=== PATIENT | female | born 1955 | race Caucasian/White ===

== ENCOUNTER → 2016-08-12 | Outpatient (CLI) | payer OTHER ==
[~2016-08-12] MED LIST: ADV250INH INH; ALBU17IN INH; LEVA250T PO; NICO21PAT TD; OXYC-517 PO; SENN1TAB2 PO; TYLE500T78 PO
[2016-08-12 13:59] LABS: MEAN CORPUSCULAR HEMOGLOBIN 33.1 pg (27.0-33.0); MEAN CORPUSCULAR HGB CONC 34.4 g/dl (32.0-36.5); MEAN CORPUSCULAR VOLUME 96.1 fl (80.0-96.0); RED CELL DISTRIBUTION WIDTH 18.9 % (11.5-14.5); WHITE BLOOD COUNT 13.4 K/mm3 (4.0-10.0)
[2016-08-12 14:22] LABS: ANION GAP 11 MEQ/L (8-16); BLOOD UREA NITROGEN 7 MG/DL (7-18); CALCIUM LEVEL 8.8 MG/DL (8.8-10.2); CARBON DIOXIDE LEVEL 26 MEQ/L (21-32); CHLORIDE LEVEL 105 MEQ/L (98-107); CREATININE FOR GFR 0.83 MG/DL (0.55-1.02); GLOMERULAR FILTRATION RATE > 60.0 (>45); GLUCOSE, FASTING 111 MG/DL (80-110); POTASSIUM SERUM 3.7 MEQ/L (3.5-5.1); SODIUM LEVEL 142 MEQ/L (136-145)
== END | disposition home or self-care (01) ==
LOC: M LAB 13:04
PROVIDERS: ATTEND Family Medicine
DX: B09 Unspecified viral infection characterized by skin and mucous membrane lesions (principal)

== ENCOUNTER → 2016-08-21 | Outpatient (CLI) | payer OTHER ==
[~2016-08-21] MED LIST changes: +ISOVUE-370 76% 100ML VIAL (Q9967) As Ordered ONE; -OXYC-517 PO; +OXYCO5TA PO
--- NOTE | 2016-08-21 12:29 | REP ---
Clinical: History of bladder cancer with cystectomy. Technique: Axial precontrast, contrast enhanced, and delayed images of the abdomen and pelvis using 100 ml Isovue 370 intravenous contrast material with coronal and sagittal re-formations. Comparison: 12/19/2015. Findings: Lung bases are stable and again demonstrate a 3.5 mm noncalcified nodule in the right lung base without further nodular lesions appreciated and no evidence for pleural effusion. Visualized portions of the heart and pericardium are normal. Liver, spleen, pancreas, gallbladder, bilateral adrenal glands and kidneys are normal. The patient is status post cystectomy with a urostomy at the right anterior abdominal wall with delayed imaging demonstrating normal renal collecting systems and bilateral ureters to the site of urostomy without evidence for hydronephrosis. There is evidence for bowel procedure with sutures noted at the small bowel in the right lower quadrant just below the level of the urostomy without evidence for bowel obstruction or acute inflammatory process. Sigmoid diverticulosis noted without acute diverticulitis. Pelvis demonstrates changes related to prior cystectomy and hysterectomy. No pelvic fluid or ascites. No significant intraperitoneal or retroperitoneal adenopathy is appreciated. No free air. Mild atherosclerotic changes of the aorta and branch vessels noted without aneurysm or dissection. Skeletal structures demonstrate degenerative changes without focal osseous abnormality. Impression: 1. The patient is status post cystectomy with a urostomy and essentially normal appearance to the bilateral kidneys and ureters without hydronephrosis. 2. No evidence for acute intra-abdominal or pelvic pathology and no evidence for obvious metastatic disease or recurrent lesion. 3. Stable 3.5 mm noncalcified nodule in the right lung base without further pulmonary basilar abnormalities. 4. Sigmoid diverticulosis. Signed by London De La O MD 08/21/2016 12:20 P
== END ==
LOC: M RAD 11:15
PROVIDERS: ATTEND Urology
DX: C67.9 Malignant neoplasm of bladder, unspecified (principal)

== ENCOUNTER → 2016-08-28 | Outpatient (REF) | payer OTHER ==
[~2016-08-28] MED LIST changes: -ISOVUE-370 76% 100ML VIAL (Q9967) As Ordered ONE; +OXYC-517 PO; -OXYCO5TA PO
== END ==
LOC: M SMT 11:05
PROVIDERS: ATTEND Urology
DX: C67.9 Malignant neoplasm of bladder, unspecified (principal)

== ENCOUNTER → 2016-09-14 | Outpatient (REF) | payer OTHER | LOC: M SMT 13:28 | PROVIDERS: ATTEND Urology | DX: C67.9 Malignant neoplasm of bladder, unspecified (principal) ==

== ENCOUNTER → 2016-09-18 | Outpatient (CLI) | payer OTHER ==
[~2016-09-18] MED LIST changes: +ISOVUE-370 76% 100ML VIAL (Q9967) As Ordered ONE
--- NOTE | 2016-09-18 15:51 | REP ---
[facility] CT of the chest, CT pulmonary angiography: Comparison is the chest CT dated 06/17/2016. There are no emboli in the pulmonary trunk or in the central right or left pulmonary arteries. There are no emboli in the pulmonary artery lobe or segment branches. There are no acute infiltrates or effusions. There is focal thickening at the peripheral aspect of the right major fissure along the superior segment of the right lower lobe, unchanged from the comparison study. There is a 11 mm lung nodule in the medial segment right lower lobe on image 47, not present on the prior study. There is a 8 mm lung nodule in the superior segment right lower lobe on page 46, unchanged from the prior study. There is a 6 mm lung nodule in the right lower lobe on image 71. This measured 4 mm on the comparison study. There is bilateral apical pleuroparenchymal scarring, unchanged. There are numerous bulla replace in the lung parenchyma bilaterally, unchanged, compatible with bullous emphysema. There is no mediastinal, hilar or axillary lymph node enlargement. Thoracic aorta is unremarkable. Cardiac size normal. Within the upper abdomen there appears to be hepato steatosis. The visualized upper abdominal contents are otherwise unremarkable. Impression: There are no pulmonary emboli. There are findings compatible with bullous emphysema. There is a new 11 mm lung nodule in the medial segment right lower lobe. There are two other lung nodules that were present previously. One of these two nodules has increased in size. There is hepato steatosis. Signed by Pankaj Oliver MD 09/18/2016 03:43 P
== END ==
LOC: M RAD 14:01
PROVIDERS: ATTEND Internal Medicine Medical Oncology
DX: R06.02 Shortness of breath (principal)

== ENCOUNTER → 2016-10-09 | Outpatient (REF) | payer OTHER ==
[~2016-10-09] MED LIST changes: -ISOVUE-370 76% 100ML VIAL (Q9967) As Ordered ONE
[2016-10-09 12:57] LABS: INR 0.94
[2016-10-09 13:22] LABS: MEAN CORPUSCULAR HEMOGLOBIN 36.2 pg (27.0-33.0); MEAN CORPUSCULAR HGB CONC 32.7 g/dl (32.0-36.5); MEAN CORPUSCULAR VOLUME 110.8 fl (80.0-96.0); PLATELET COUNT, AUTOMATED 570 k/mm3 (150-450); RED CELL DISTRIBUTION WIDTH 20.7 % (11.5-14.5); WHITE BLOOD COUNT 5.2 K/mm3 (4.0-10.0)
[2016-10-09 14:02] LABS: BANDS 1 % (< 11); BASOPHILS 2 % (0-4); CORRECTED WHITE BLOOD COUNT 4.9 K/mm3; EOSINOPHILS 2 % (0-5); NUCLEATED RED BLOOD CELL 7 % (0-0)
[2016-10-09 14:03] LABS: ANISOCYTOSIS 2+
== END ==
LOC: M LABDRWAD 12:40
PROVIDERS: ATTEND Internal Medicine Medical Oncology
DX: C67.9 Malignant neoplasm of bladder, unspecified (principal)

== ENCOUNTER → 2016-10-16 | Outpatient (CLI) | payer OTHER ==
[~2016-10-16] MED LIST changes: +LIDOCAINE 1% MDV 20ML VIAL As Ordered ONE
--- NOTE | 2016-10-16 13:32 | REP ---
LIMITED CT CHEST: Limited CT of the chest is performed without IV contrast and compared to a prior study of 09/18/2016. The patient presents for CT-guided biopsy of a right lower lobe nodule. The nodule has significantly decreased in size. The maximum diameter is 5 mm. The previous diameter was 1.1 cm. This is most consistent with an inflammatory nodule. Recommend followup CT exam in two months. Signed by Pankaj Chappell MD 10/16/2016 05:01 P
== END ==
LOC: M RADPRO 08:08
PROVIDERS: ATTEND Internal Medicine Medical Oncology
DX: R91.1 Solitary pulmonary nodule (principal); Z88.2 Allergy status to sulfonamides; Z79.899 Other long term (current) drug therapy

== ENCOUNTER → 2016-11-04 | Outpatient (CLI) | payer OTHER ==
[~2016-11-04] MED LIST changes: -LIDOCAINE 1% MDV 20ML VIAL As Ordered ONE
--- NOTE | 2016-11-04 09:46 | REP ---
Clinical: Abdominal distension. Technique: Real time neville scale and color evaluation using curved array transducer. Findings: The liver is mildly enlarged and demonstrates diffuse increase echogenicity and poor through transmission suggesting fatty infiltration without focal hepatic lesion identified. Spleen and pancreas are normal in contour, size, echogenicity without focal splenic or pancreatic lesions identified. The gallbladder is normal and without gallstones, wall thickening or pericholecystic fluid. No biliary ductal dilatation is appreciated and the common bile duct measures 5.5 mm diameter. Kidneys are normal in reniform shape with suggestions for mild to nephrosis/pelviectasis. Right kidney measures 11.5 x 6.6 x 4.7 cm with renovascular calcifications and no cystic or mass lesion. Left kidney measures 12.5 x 7.0 x 5.4 cm with renovascular calcifications and no cystic or mass lesion. Abdominal aorta is normal in appearance measuring 2.5 cm maximal diameter. No ascites. Impression: 1. Hepatomegaly and hepatosteatosis without focal hepatic lesion. 2. Mild bilateral hydronephrosis suggested. Signed by London De La O MD 11/04/2016 09:37 A
== END ==
LOC: M RAD 08:19
PROVIDERS: ATTEND Physician Assistant Medical
DX: R10.11 Right upper quadrant pain (principal)

== ENCOUNTER → 2016-11-24 | Outpatient (CLI) | payer OTHER ==
--- NOTE | 2016-11-24 16:07 | REPMRS ---
Patient History The patient states she had a clinical breast exam in 11/2016. Patient is postmenopausal, has history of bladder cancer at age 60, and is nulliparous. Family history of breast cancer in sister at age 65. Digital Woman Screen Mammo: November 24, 2016 - Exam #: [id number] Bilateral CC and MLO view(s) were taken. Technologist: Ivet Zayas Technologist Prior study comparison: December 06, 2015, digital mammo diagnostic bilateral, performed at [facility]. November 15, 2015, digital woman screen mammo performed at [facility]. June 14, 2012, digital bilateral screening mammo, performed at [facility]. FINDINGS: There are scattered fibroglandular densities. There has been no change in the appearance of the mammogram from the prior studies. There is a mild amount of scattered fibroglandular density which is fairly symmetric. There is no interval development of dominant mass, architectural distortion, or clustered microcalcification suggestive of malignancy. ASSESSMENT: BI-RADS/ACR category 1 mammogram. Negative. Recommendation Routine screening mammogram in 1 year (for women over age 40). This mammogram was interpreted with the aid of an FDA-approved computer-aided dectection system. Electronically Signed By: Ishmael Robbins MD 11/24/16 [id number]
== END ==
LOC: M WHC 13:30
PROVIDERS: ATTEND Physician Assistant Medical
DX: Z12.39 Encounter for other screening for malignant neoplasm of breast (principal)

== ENCOUNTER → 2016-12-15 | Outpatient (REF) | payer OTHER ==
[2016-12-15 16:05] LABS: CALCIUM LEVEL 9.1 MG/DL (8.8-10.2); CREATININE FOR GFR 1.01 MG/DL (0.55-1.02); GLOMERULAR FILTRATION RATE 59.1 (>45); POTASSIUM SERUM 4.8 MEQ/L (3.5-5.1)
[2016-12-15 16:12] LABS: MEAN CORPUSCULAR HEMOGLOBIN 34.9 pg (27.0-33.0); MEAN CORPUSCULAR HGB CONC 33.4 g/dl (32.0-36.5); MEAN CORPUSCULAR VOLUME 104.5 fl (80.0-96.0); RED CELL DISTRIBUTION WIDTH 13.8 % (11.5-14.5)
== END ==
LOC: M LABSMT 09:20
PROVIDERS: ATTEND Urology
DX: Z85.51 Personal history of malignant neoplasm of bladder (principal)

== ENCOUNTER → 2017-01-06 | Outpatient (CLI) | payer OTHER ==
[2017-01-06 12:40] LABS: BASO # 0.1 K/mm3 (0.0-0.2); BASO % 1.1 % (0.0-1.0); EOS # 0.1 K/mm3 (0.0-0.50); LARGE UNSTAINED CELL # 0.1 K/mm3 (0.0-0.4); LARGE UNSTAINED CELL % 1.9 % (0.0-4.0); LYMPH # 3.2 K/mm3 (1.5-4.5); LYMPH % 40.1 % (24.0-44.0); MEAN CORPUSCULAR HEMOGLOBIN 33.9 pg (27.0-33.0); MEAN CORPUSCULAR VOLUME 99.8 fl (80.0-96.0); MONO # 0.4 K/mm3 (0.0-0.8); MONO % 5.4 % (0.0-5.0); NEUTROPHILS # 3.9 K/mm3 (1.8-7.7); NEUTROPHILS % 50.6 % (36.0-66.0); PLATELET COUNT, AUTOMATED 227 k/mm3 (150-450); RED CELL DISTRIBUTION WIDTH 13.6 % (11.5-14.5); WHITE BLOOD COUNT 7.7 K/mm3 (4.0-10.0)
[2017-01-06 12:55] LABS: ALBUMIN 3.8 GM/DL (3.2-5.2); ALKALINE PHOSPHATASE 74 U/L (45-117); ALT/SGPT 54 U/L (12-78); AMYLASE 59 U/L (25-115); ANION GAP 8 MEQ/L (8-16); AST/SGOT 36 U/L (15-37); BILIRUBIN,TOTAL 0.4 MG/DL (0.2-1.0); BLOOD UREA NITROGEN 13 MG/DL (7-18); CALCIUM LEVEL 9.6 MG/DL (8.8-10.2); CARBON DIOXIDE LEVEL 28 MEQ/L (21-32); CHLORIDE LEVEL 103 MEQ/L (98-107); CHOLESTEROL LEVEL 237 MG/DL (<200); CREATININE FOR GFR 0.96 MG/DL (0.55-1.02); GLOMERULAR FILTRATION RATE > 60.0 (>45); GLUCOSE, FASTING 84 MG/DL (80-110); POTASSIUM SERUM 4.4 MEQ/L (3.5-5.1); SODIUM LEVEL 139 MEQ/L (136-145); TRIGLYCERIDES LEVEL 300 MG/DL (<150)
--- NOTE | 2017-01-06 14:24 | REP ---
CT ABDOMEN AND PELVIS WITH AND WITHOUT CONTRAST: TECHNIQUE: Axial noncontrast images through the abdomen followed by contrast-enhanced images through the abdomen and pelvis using 100 mL Isovue 370 intravenous contrast material, with coronal and sagittal reformations. Visualized lung bases show 4 mm nodule inferiorly on the right, unchanged. There is hepatomegaly with diffuse fatty infiltration of the liver. The length of the liver is approximately 20 cm. This has not significantly changed. The spleen, adrenals, pancreas, and kidneys are unchanged. There is slight bilateral hydroureteronephrosis. Urostomy is seen extending into the right lower quadrant and extends into the anterior abdominal wall. A small bowel loops is now seen in this portion of the right anterior abdominal wall at the ostomy site but there is no obstruction of small bowel. There is no abdominal aortic aneurysm. There is no adenopathy. There is no free air or free fluid. No bowel wall thickening is seen. There is sigmoid diverticulosis without acute diverticulitis. There is no evidence of a pelvic mass. IMPRESSION: Right lower quadrant urostomy extends into the right anterior abdominal wall inferiorly. There is a new nonobstructed herniated small bowel loop into the abdominal wall with this location, but there is no evidence of bowel obstruction. Otherwise, stable findings as discussed in detail above. Signed by Pankaj Chappell MD 01/07/2017 07:05 P
== END ==
LOC: M LAB 11:29
PROVIDERS: ATTEND Physician Assistant
DX: R10.84 Generalized abdominal pain (principal)

== ENCOUNTER → 2017-01-07 | Outpatient (REF) | payer OTHER | LOC: M SFHCADAM 12:05 | PROVIDERS: ATTEND Physician Assistant | DX: R10.84 Generalized abdominal pain (principal) ==

== ENCOUNTER → 2017-01-21 | Outpatient (CLI) | payer OTHER ==
--- NOTE | 2017-01-22 01:23 | REP ---
Clinical: COPD. Technique: PA and lateral. Comparison: 08/07/2016. Findings: Biapical scarring and diffuse chronic interstitial changes are appreciated and consistent with history of COPD. Findings remain stable compared to prior examinations. No acute consolidation, effusion, or pneumothorax. Mediastinum and cardiac silhouette stable. Skeletal structures intact. Impression: Stable changes as described above. Signed by London De La O MD 01/22/2017 01:15 A
== END ==
LOC: M SMT 09:44
PROVIDERS: ATTEND Internal Medicine Pulmonary Disease
DX: J44.9 Chronic obstructive pulmonary disease, unspecified (principal)

== ENCOUNTER → 2017-02-19 | Outpatient (REF) | payer OTHER ==
[~2017-02-19] MED LIST changes: +CIPR-249 PO; +LEVA1TAB PO; -LEVA250T PO; +METF10004 PO; +MIRA33504 PO; +NORCOTAB PO; +OMEP40CA2 PO; +PRED10PA PO; +PRED10TA2 PO; +SYMB16INH INH; +TRUL10IN SC; +TYLE650T35 PO
[2017-02-19 12:22] LABS: BASO # 0.1 K/mm3 (0.0-0.2); BASO % 1.1 % (0.0-1.0); EOS # 0.1 K/mm3 (0.0-0.50); EOS % 1.8 % (0.0-3.0); LARGE UNSTAINED CELL # 0.2 K/mm3 (0.0-0.4); LARGE UNSTAINED CELL % 3.3 % (0.0-4.0); LYMPH # 2.9 K/mm3 (1.5-4.5); LYMPH % 41.9 % (24.0-44.0); MEAN CORPUSCULAR HEMOGLOBIN 34.7 pg (27.0-33.0); MEAN CORPUSCULAR HGB CONC 34.8 g/dl (32.0-36.5); MEAN CORPUSCULAR VOLUME 99.9 fl (80.0-96.0); MONO # 0.4 K/mm3 (0.0-0.8); MONO % 6.4 % (0.0-5.0); NEUTROPHILS # 2.9 K/mm3 (1.8-7.7); NEUTROPHILS % 45.6 % (36.0-66.0); PLATELET COUNT, AUTOMATED 221 k/mm3 (150-450); RED CELL DISTRIBUTION WIDTH 14.8 % (11.5-14.5); WHITE BLOOD COUNT 6.4 K/mm3 (4.0-10.0)
[2017-02-19 12:32] LABS: ALBUMIN 3.7 GM/DL (3.2-5.2); ALBUMIN/GLOBULIN RATIO 0.97 (1.00-1.93); ALKALINE PHOSPHATASE 98 U/L (45-117); ALT/SGPT 80 U/L (12-78); ANION GAP 9 MEQ/L (8-16); AST/SGOT 38 U/L (15-37); BILIRUBIN,TOTAL 0.5 MG/DL (0.2-1.0); BLOOD UREA NITROGEN 19 MG/DL (7-18); CALCIUM LEVEL 9.3 MG/DL (8.8-10.2); CARBON DIOXIDE LEVEL 25 MEQ/L (21-32); CHLORIDE LEVEL 102 MEQ/L (98-107); CREATININE FOR GFR 0.97 MG/DL (0.55-1.02); GLOMERULAR FILTRATION RATE > 60.0 (>45); GLUCOSE, FASTING 195 MG/DL (80-110); POTASSIUM SERUM 4.4 MEQ/L (3.5-5.1); SODIUM LEVEL 136 MEQ/L (136-145); TOTAL PROTEIN 7.5 GM/DL (6.4-8.2)
== END ==
LOC: M LABDRWAD 12:07
PROVIDERS: ATTEND Internal Medicine Medical Oncology
DX: C67.9 Malignant neoplasm of bladder, unspecified (principal)

== ENCOUNTER 2017-03-04 23:36 | Emergency (ER) | payer OTHER ==
[~2017-03-04 23:36] MED LIST changes: -CIPR-249 PO; -METF10004 PO; -MIRA33504 PO; -NORCOTAB PO; -OMEP40CA2 PO; -PRED10PA PO; -PRED10TA2 PO; -SYMB16INH INH; -TRUL10IN SC; -TYLE650T35 PO
[2017-03-05] MEDS ORDERED: GASTROGRAFIN SOLUTION 30ML PO ONE (00:40)
[2017-03-05] MEDS ORDERED: GASTROGRAFIN SOLUTION 30ML (Q9963) PO ONE (01:10)
[2017-03-05 01:24] LABS: BASO # 0.1 K/mm3 (0.0-0.2); BASO % 0.8 % (0.0-1.0); EOS # 0.1 K/mm3 (0.0-0.50); EOS % 1.4 % (0.0-3.0); LARGE UNSTAINED CELL # 0.2 K/mm3 (0.0-0.4); LYMPH # 3.8 K/mm3 (1.5-4.5); LYMPH % 37.1 % (24.0-44.0); MEAN CORPUSCULAR HEMOGLOBIN 35.3 pg (27.0-33.0); MEAN CORPUSCULAR HGB CONC 35.1 g/dl (32.0-36.5); MEAN CORPUSCULAR VOLUME 100.7 fl (80.0-96.0); MONO # 0.5 K/mm3 (0.0-0.8); MONO % 4.9 % (0.0-5.0); NEUTROPHILS # 5.2 K/mm3 (1.8-7.7); NEUTROPHILS % 53.7 % (36.0-66.0); PLATELET COUNT, AUTOMATED 211 k/mm3 (150-450); RED CELL DISTRIBUTION WIDTH 14.8 % (11.5-14.5); WHITE BLOOD COUNT 9.7 K/mm3 (4.0-10.0)
[2017-03-05 01:35] LABS: INR 0.87
[2017-03-05 01:42] LABS: CALCIUM LEVEL 8.5 MG/DL (8.8-10.2); CREATININE FOR GFR 1.13 MG/DL (0.55-1.02); GLOMERULAR FILTRATION RATE 51.9 (>45); POTASSIUM SERUM 4.1 MEQ/L (3.5-5.1)
[2017-03-05] MEDS ORDERED: ISOVUE-370 76% 100ML VIAL (Q9967) As Ordered ONE (01:57)
--- NOTE | 2017-03-05 02:39 | REP ---
Clinical: Hernia pain. History of bladder cancer with resection and urostomy. Technique: Axial contrast enhanced images from the lung bases to the pubic symphysis using oral and 100 ml Isovue 370 intravenous contrast material with coronal and sagittal re-formations. Comparison: 01/06/2017. Findings: The patient is status post bladder resection and urostomy via the right anterior abdominopelvic wall. A peristomal hernia is identified with multiple loops of nonobstructed small bowel which has increased with comparison to prior examination. The remainder of the enteric system is without obstruction or acute inflammatory process. Colonic and sigmoid diverticula noted without acute diverticulitis. The bilateral kidneys and ureters are normal and without perinephric stranding or hydroureteronephrosis. Diffuse fatty infiltration to the liver appreciated without focal hepatic lesion. Spleen, pancreas, collapsed gallbladder, and bilateral adrenal glands are normal. Pelvis again demonstrates sigmoid diverticulosis without acute diverticulitis and evidence for prior hysterectomy and bladder resection. No pelvic fluid or ascites. No intraperitoneal or retroperitoneal adenopathy. No obvious mass lesion. No free air. Abdominal aorta and vasculature demonstrates mild atherosclerotic changes without aneurysm or dissection. Musculoskeletal structures demonstrate age-related changes without focal osseous abnormality. Lung bases demonstrate chronic interstitial changes without consolidation, effusion, nodule or mass. Impression: 1. Peristomal hernia has increased in size and now contains multiple loops of nonobstructed small bowel. Hernia measures roughly 9.5 cm maximal diameter. 2. Relatively normal appearance of the bilateral kidneys and ureters without hydronephrosis. 3. Colonic/sigmoid diverticulosis without acute diverticulitis. 4. No ascites or acute abdominopelvic pathology otherwise appreciated. Signed by London De La O MD 03/05/2017 02:30 A
[2017-03-05] MEDS ORDERED: CIPROFLOXACIN 400 MG in APPROPRIATE DILUENT 1 EA IV ONE ×2 (03:00→07:45)
[2017-03-05 05:29] LABS: BASO # 0.1 K/mm3 (0.0-0.2); BASO % 0.8 % (0.0-1.0); EOS # 0.1 K/mm3 (0.0-0.50); EOS % 1.2 % (0.0-3.0); LARGE UNSTAINED CELL # 0.2 K/mm3 (0.0-0.4); LARGE UNSTAINED CELL % 2.5 % (0.0-4.0); LYMPH # 3.9 K/mm3 (1.5-4.5); LYMPH % 42.9 % (24.0-44.0); MEAN CORPUSCULAR HEMOGLOBIN 34.6 pg (27.0-33.0); MEAN CORPUSCULAR HGB CONC 34.6 g/dl (32.0-36.5); MONO # 0.6 K/mm3 (0.0-0.8); MONO % 6.4 % (0.0-5.0); NEUTROPHILS # 4.2 K/mm3 (1.8-7.7); NEUTROPHILS % 46.2 % (36.0-66.0); PLATELET COUNT, AUTOMATED 188 k/mm3 (150-450); RED CELL DISTRIBUTION WIDTH 14.5 % (11.5-14.5)
[2017-03-05] MEDS ORDERED: MIRA33504 PO (06:08)
[2017-03-05] MEDS ORDERED: PRED10PA PO (06:08)
[2017-03-05] MEDS ORDERED: TYLE650T35 PO (06:08)
[2017-03-05] MEDS ORDERED: PRED10TA2 PO (06:08)
[2017-03-05] MEDS ORDERED: SYMB16INH INH (06:10)
[2017-03-05] MEDS ORDERED: OMEP40CA2 PO (06:10)
[2017-03-05] MEDS ORDERED: NS 1,000 ML IV ONE (07:45)
[2017-03-05] MEDS ORDERED: CIPR-249 PO (08:05)
--- NOTE | 2017-03-05 08:37 | SMCUROLCON ---
Urology Consultation General Date of Consultation 03/05/17 Reason For Consultation This patient is seen for Medical Complaint. History of Present Illness This is a 61 y/o F w/ a PMH significant for GERD, HTN, COPD, and [id number] urothelial carcinoma of the bladder s/p robotic-assisted laparoscopic radical cystectomy w/ bilateral pelvic lymph node dissection and ileal conduit urinary diversion 04/2016 and subsequent chemotherapy, who presented to the ER w/ the onset of hematuria yesterday evening. She notes that she got up last night and all of a sudden a large amount of clots and blood poured out into her ostomy bag. This happened another 2 times while in the ER. She denies abdominal or flank pain. She denies nausea. She denies fevers or chills. Past Medical History Medical History see HPI Surgical Hstory see HPI Medications Current Medications Current Medications Home Med (Med Rec Complete!) ASDIRECTED XX ; Start 03/05/17 at 06:15; Stop at 06:15; Status DC Allergies Allergies: Coded Allergies: Sulfa Antibiotics (Unverified Allergy, Unknown, 01/16/16) Review of Systems General: Reports: Normal Appetite, Denies: Fatigue, Malaise Constitutional: Denies: Fever, Chills, Sweats Skin: Denies: Rash, Lesions, Breakdown, Nail Changes Pulmonary: Reports: Dyspnea, Cough Cardiovascular: Denies Chest Pain, Denies Palpitations Gastrointestinal: Denies: Nausea, Vomiting, Abdominal Pain Genitourinary: Reports: Hematuria Musculoskeletal: Denies: Neck Pain, Back Pain Neurological: Denies: Numbness, Incoordination, Change in Speech Psych: Reports: Mood Normal Physical Examination General Exam: Alert, Cooperative, No Acute Distress ENT EXAM: Atraumatic Chest Exam: Clear to auscultation Heart Exam: Rate Normal, Regular Rhythm Abdomen Exam: Soft, Other (stoma pink with a few clots on top and thin light red urine in the bag), No: Tenderness Skin Exam: Nl turgor and temperature Neuro Exam: Normal Speech Psych Exam: Mental status NL, Mood NL Vital Signs/I&O Vital Signs Date Time Temp Pulse Resp B/P (MAP) Pulse Ox O2 Delivery O2 Flow Rate FiO2 03/05/17 07:30 84 95 03/05/17 07:23 138/90 (106) Laboratory Data 24H Labs Laboratory Tests 2 03/05/17 01:13: White Blood Count 9.7, Red Blood Count 3.84L, Hemoglobin 13.6, Hematocrit 38.7, Mean Corpuscular Volume 100.7H, Mean Corpuscular Hemoglobin 35.3H, Mean Corpuscular Hemoglobin Concent 35.1, Red Cell Distribution Width 14.8H, Platelet Count 211, Neutrophils (%) (Auto) 53.7, Lymphocytes (%) (Auto) 37.1, Monocytes (%) (Auto) 4.9, Eosinophils (%) (Auto) 1.4, Basophils (%) (Auto) 0.8, Neutrophils # (Auto) 5.2, Lymphocytes # (Auto) 3.8, Monocytes # (Auto) 0.5, Eosinophils # (Auto) 0.1, Basophils # (Auto) 0.1, Large Unclassified Cells % 2.0 , Large Unclassified Cells # 0.2, Prothrombin Time 11.9L, Prothromb Time International Ratio 0.87, Activated Partial Thromboplast Time 23.6L, Anion Gap 9 , Glomerular Filtration Rate 51.9, Blood Urea Nitrogen 23H, Creatinine 1.13H, Sodium Level 138, Potassium Level 4.1, Chloride Level 105, Carbon Dioxide Level 24, Calcium Level 8.5L 03/05/17 01:35: Urine Appearance HAZY, Urine Color REDH, Urine pH 8.0, Urine Specific Cylinder 1.012, Urine Protein 1+H, Urine Glucose (UA) 3+H, Urine Ketones NEGATIVE, Urine Urobilinogen 0.2, Urine Bilirubin NEGATIVE, Urine Leukocyte Esterase 1+H, Urine Blood 3+H, Urine Nitrite NEGATIVE, Urine WBC (Auto) TNTCH, Urine RBC (Auto) TNTCH, Urine Hyaline Casts (Auto) 0, Urine Bacteria (Auto) NEGATIVE, Urine Squamous Epithelial Cells 2, Urine Amorphous Sediment SMALLH, Urine Sperm (Auto ) 03/05/17 05:09: White Blood Count 9.0, Red Blood Count 3.80L, Hemoglobin 13.1, Hematocrit 38.0, Mean Corpuscular Volume 100.0H, Mean Corpuscular Hemoglobin 34.6H, Mean Corpuscular Hemoglobin Concent 34.6, Red Cell Distribution Width 14.5, Platelet Count 188, Neutrophils (%) (Auto) 46.2, Lymphocytes (%) (Auto) 42.9, Monocytes ( %) (Auto) 6.4H, Eosinophils (%) (Auto) 1.2, Basophils (%) (Auto) 0.8, Neutrophils # (Auto) 4.2, Lymphocytes # (Auto) 3.9, Monocytes # (Auto) 0.6, Eosinophils # (Auto) 0.1, Basophils # (Auto) 0.1, Large Unclassified Cells % 2.5 , Large Unclassified Cells # 0.2 CBC/BMP Laboratory Tests 03/05/17 01:13 Red Blood Count 3.84 L, Mean Corpuscular Volume 100.7 H, Mean Corpuscular Hemoglobin 35.3 H, Mean Corpuscular Hemoglobin Concent 35.1, Red Cell Distribution Width 14.8 H, Neutrophils (%) (Auto) 53.7, Lymphocytes (%) (Auto) 37.1, Monocytes (%) (Auto) 4.9, Eosinophils (%) (Auto) 1.4, Basophils (%) (Auto ) 0.8, Neutrophils # (Auto) 5.2, Lymphocytes # (Auto) 3.8, Monocytes # (Auto) 0.5, Eosinophils # (Auto) 0.1, Basophils # (Auto) 0.1, Calcium Level 8.5 L 03/05/17 05:09 Red Blood Count 3.80 L, Mean Corpuscular Volume 100.0 H, Mean Corpuscular Hemoglobin 34.6 H, Mean Corpuscular Hemoglobin Concent 34.6, Red Cell Distribution Width 14.5, Neutrophils (%) (Auto) 46.2, Lymphocytes (%) (Auto) 42.9, Monocytes (%) (Auto) 6.4 H, Eosinophils (%) (Auto) 1.2, Basophils (%) ( Auto) 0.8, Neutrophils # (Auto) 4.2, Lymphocytes # (Auto) 3.9, Monocytes # (Auto ) 0.6, Eosinophils # (Auto) 0.1, Basophils # (Auto) 0.1 Microbiology Microbiology 03/05/17 Urine Culture, Received Pending Assessment This is a 61 y/o F w/ [id number] urothelial carcinoma of the bladder s/p robotic- assisted laparoscopic radical cystectomy w/ bilateral pelvic lymph node dissection and ileal conduit urinary diversion 04/2016 and subsequent chemotherapy, in the ED w/ hematuria. Her labs and imaging were reviewed. On CT there are no obvious causes of hematuria. There is no hydronephrosis. The only notable abnormality is an increase in the size of her parastomal hernia w/ no evidence of bowel obstruction. Her labs show a stable Hb and the UA is notable for TNTC WBCs and RBCs. I suspect a UTI is the cause of her hematuria. Based on the appearance of the urine in the bag when I examined her, I suspect the hematuria is clearing up. Plan - recommend hydrating the patient - assuming there is no worsening of the hematuria while in the ED, she can be sent home on a 10-14 course of ciprofloxacin - she was advised to call us or go to the nearest ED if the hematuria worsens over the weekend or if the stoma stops draining - defer management of the parastomal hernia to general surgery - we will arrange for her to follow up early next week in the office LINN BLOOM MD Mar 05, 2017 08:37
--- NOTE | 2017-03-05 09:03 | ED PDOC ---
Post-Departure Follow-Up radiology report faxed to Dr. Bosch and Madison Kurtz MD Mar 05, 2017 09:03
[2017-03-05 09:22] VITALS: BP 160/72
[2017-06-01] MEDS ORDERED: TRUL10IN SC (10:47)
[2017-06-01] MEDS ORDERED: METF10004 PO (10:47)
[2017-06-13] MEDS ORDERED: NORCOTAB PO (09:24)
== END 2017-03-05 09:31 | disposition home or self-care (01) ==
LOC: EDBD 23:36 → M ED 23:36
DX: K43.5 Parastomal hernia without obstruction or gangrene (principal); N39.0 Urinary tract infection, site not specified; E78.4 Other hyperlipidemia; K21.9 Gastro-esophageal reflux disease without esophagitis; J44.9 Chronic obstructive pulmonary disease, unspecified; Z85.51 Personal history of malignant neoplasm of bladder; Z90.6 Acquired absence of other parts of urinary tract; Z87.891 Personal history of nicotine dependence
CPT/HCPCS: 74177; 80048; 81001; 85025; 85610; 85730; 87040; 87086; 96361; 96374; 99285; J0744; Q9963; Q9967

== ENCOUNTER → 2017-04-20 | Outpatient (REF) | payer OTHER ==
[~2017-04-20] MED LIST changes: +CIPR-249 PO; +METF10004 PO; +MIRA33504 PO; +NORCOTAB PO; +OMEP40CA2 PO; +PRED10PA PO; +PRED10TA2 PO; +SYMB16INH INH; +TRUL10IN SC; +TYLE650T35 PO
[2017-04-20 20:08] LABS: CALCIUM LEVEL 9.3 MG/DL (8.8-10.2); CREATININE FOR GFR 1.16 MG/DL (0.55-1.02); GLOMERULAR FILTRATION RATE 50.4 (>45); POTASSIUM SERUM 4.7 MEQ/L (3.5-5.1)
[2017-04-20 20:17] LABS: MEAN CORPUSCULAR HEMOGLOBIN 35.1 pg (27.0-33.0); MEAN CORPUSCULAR HGB CONC 32.9 g/dl (32.0-36.5); MEAN CORPUSCULAR VOLUME 106.7 fl (80.0-96.0); RED CELL DISTRIBUTION WIDTH 13.4 % (11.5-14.5); WHITE BLOOD COUNT 7.7 K/mm3 (4.0-10.0)
== END ==
LOC: M SFHCADAM 14:37
PROVIDERS: ATTEND Urology
DX: C67.9 Malignant neoplasm of bladder, unspecified (principal)

== ENCOUNTER → 2017-04-22 | Outpatient (REF) | payer OTHER ==
[2017-04-22 14:20] LABS: CALCIUM LEVEL 8.8 MG/DL (8.8-10.2); CREATININE FOR GFR 1.15 MG/DL (0.55-1.02); GLOMERULAR FILTRATION RATE 50.9 (>45); POTASSIUM SERUM 4.4 MEQ/L (3.5-5.1)
== END ==
LOC: M SFHCPLAZ 09:28
PROVIDERS: ATTEND Physician Assistant Medical
DX: R73.09 Other abnormal glucose (principal)

== ENCOUNTER → 2017-07-16 | Outpatient (REF) | payer OTHER ==
[2017-07-16 12:26] LABS: BASO # 0.1 10^3/uL (0.0-0.2); BASO % 0.7 % (0.0-1.0); EOS # 0.3 10^3/uL (0.0-0.50); EOS % 2.3 % (0.0-3.0); IMMATURE GRANULOCYTE % 0.7 % (0-0); LYMPH # 4.4 10^3/uL (1.5-4.5); LYMPH % 38.3 % (24.0-44.0); MEAN CORPUSCULAR HEMOGLOBIN 34.8 pg (27.0-33.0); MEAN CORPUSCULAR HGB CONC 33.5 g/dl (32.0-36.5); MEAN CORPUSCULAR VOLUME 103.8 fl (80.0-96.0); MONO # 0.8 10^3/uL (0.0-0.8); MONO % 6.6 % (0.0-5.0); NEUTROPHILS # 5.9 10^3/uL (1.8-7.7); NEUTROPHILS % 51.4 % (36.0-66.0); PLATELET COUNT, AUTOMATED 278 10^3/uL (150-450); RED CELL DISTRIBUTION WIDTH 13.5 % (11.5-14.5); WHITE BLOOD COUNT 11.5 10^3/uL (4.0-10.0)
[2017-07-16 12:51] LABS: ALBUMIN 3.9 GM/DL (3.2-5.2); ALBUMIN/GLOBULIN RATIO 1.11 (1.00-1.93); ALKALINE PHOSPHATASE 70 U/L (45-117); ALT/SGPT 32 U/L (12-78); ANION GAP 11 MEQ/L (8-16); AST/SGOT 11 U/L (7-37); BILIRUBIN,TOTAL 0.5 MG/DL (0.2-1.0); BLOOD UREA NITROGEN 15 MG/DL (7-18); CALCIUM LEVEL 9.2 MG/DL (8.8-10.2); CARBON DIOXIDE LEVEL 26 MEQ/L (21-32); CHLORIDE LEVEL 106 MEQ/L (98-107); CHOLESTEROL LEVEL 212 MG/DL (<200); CREATININE FOR GFR 0.79 MG/DL (0.55-1.02); GLOMERULAR FILTRATION RATE > 60.0 (>45); GLUCOSE, FASTING 103 MG/DL (80-110); POTASSIUM SERUM 4.4 MEQ/L (3.5-5.1); SODIUM LEVEL 143 MEQ/L (136-145); TOTAL PROTEIN 7.4 GM/DL (6.4-8.2); TRIGLYCERIDES LEVEL 372 MG/DL (<150)
== END ==
LOC: M SFHCADAM 09:51
PROVIDERS: ATTEND Physician Assistant Medical
DX: K21.9 Gastro-esophageal reflux disease without esophagitis (principal); E78.4 Other hyperlipidemia; E78.1 Pure hyperglyceridemia; E55.9 Vitamin D deficiency, unspecified

== ENCOUNTER → 2017-09-07 | Outpatient (CLI) | payer OTHER ==
[~2017-09-07] MED LIST changes: -ADV250INH INH; -ALBU17IN INH; -CIPR-249 PO; +ISOVUE-370 76% 100ML VIAL (Q9967) As Ordered; -LEVA1TAB PO; -METF10004 PO; -MIRA33504 PO; -NICO21PAT TD; -NORCOTAB PO; -OMEP40CA2 PO; -OXYC-517 PO; -PRED10PA PO; -PRED10TA2 PO; -SENN1TAB2 PO; -SYMB16INH INH; -TRUL10IN SC; -TYLE500T78 PO; -TYLE650T35 PO
== END ==
LOC: M RAD 12:02
DX: M54.2 Cervicalgia (principal)

== ENCOUNTER → 2017-09-09 | Outpatient (REF) | payer OTHER ==
[2017-09-09 14:54] LABS: HEMATOCRIT 43.1 % (36.0-47.0); MEAN CORPUSCULAR HEMOGLOBIN 34.3 pg (27.0-33.0); MEAN CORPUSCULAR HGB CONC 32.5 g/dl (32.0-36.5); MEAN CORPUSCULAR VOLUME 105.6 fl (80.0-96.0); PLATELET COUNT, AUTOMATED 282 10^3/uL (150-450); RED BLOOD COUNT 4.08 10^6/uL (4.00-5.40); RED CELL DISTRIBUTION WIDTH 13.4 % (11.5-14.5); WHITE BLOOD COUNT 10.5 10^3/uL (4.0-10.0)
[2017-09-09 15:47] LABS: ANION GAP 6 MEQ/L (8-16); BLOOD UREA NITROGEN 13 MG/DL (7-18); CALCIUM LEVEL 8.9 MG/DL (8.8-10.2); CARBON DIOXIDE LEVEL 28 MEQ/L (21-32); CHLORIDE LEVEL 104 MEQ/L (98-107); CREATININE FOR GFR 0.81 MG/DL (0.55-1.30); GLOMERULAR FILTRATION RATE > 60.0 (>45); GLUCOSE, FASTING 136 MG/DL (70-100); POTASSIUM SERUM 4.7 MEQ/L (3.5-5.1); SODIUM LEVEL 138 MEQ/L (136-145)
== END ==
LOC: M SFHCADAM 10:38
DX: Z85.51 Personal history of malignant neoplasm of bladder (principal)

== ENCOUNTER → 2017-09-14 | Outpatient (CLI) | payer OTHER | LOC: M RAD 07:33 | DX: R68.84 Jaw pain (principal) | CPT/HCPCS: 70486 ==

== ENCOUNTER → 2017-09-21 | Outpatient (REF) | payer OTHER ==
[2017-09-24 00:06] LABS: HERPES ZOSTER, VARICELLA IgM <0.91 index (0.00-0.90)
[2017-09-24 00:06] LABS: HERPES ZOSTER, VARICELLA IgG 672 index (Immune >165)
== END ==
LOC: M SFHCADAM 07:35
DX: M54.2 Cervicalgia (principal); R51 Headache; H92.01 Otalgia, right ear
CPT/HCPCS: 86787

== ENCOUNTER 2017-10-22 00:37 | Emergency (ER) | payer OTHER ==
[2017-10-22] MEDS: ONDANSETRON 4MG/2ML VIAL (J2405) IV (05:08)
[2017-10-22] MEDS: MORPHINE 4 MG/ML 1ML VIAL (J2270) IV (05:08)
[2017-10-22] MEDS: NS 1,000 ML IV (05:09)
[2017-10-22 05:13] LABS: BASO # 0.1 10^3/uL (0.0-0.2); BASO % 0.5 % (0.0-1.0); EOS # 0.1 10^3/uL (0.0-0.50); EOS % 0.3 % (0.0-3.0); HEMATOCRIT 45.3 % (36.0-47.0); HEMOGLOBIN 15.3 g/dl (12.0-16.0); LYMPH # 2.2 10^3/uL (1.5-4.5); LYMPH % 12.8 % (24.0-44.0); MEAN CORPUSCULAR HEMOGLOBIN 34.1 pg (27.0-33.0); MEAN CORPUSCULAR HGB CONC 33.8 g/dl (32.0-36.5); MEAN CORPUSCULAR VOLUME 100.9 fl (80.0-96.0); MONO # 1.8 10^3/uL (0.0-0.8); MONO % 10.3 % (0.0-5.0); NEUTROPHILS # 12.8 10^3/uL (1.8-7.7); NEUTROPHILS % 75.1 % (36.0-66.0); PLATELET COUNT, AUTOMATED 318 10^3/uL (150-450); RED BLOOD COUNT 4.49 10^6/uL (4.00-5.40); RED CELL DISTRIBUTION WIDTH 13.5 % (11.5-14.5)
[2017-10-22 05:17] LABS: KETONE, URINE AUTO RFX NEGATIVE (NEGATIVE); LEUKOCYTE ESTERASE UR AUTO RFX NEGATIVE (NEGATIVE); NITRITE, URINE AUTO RFX NEGATIVE (NEGATIVE); RBC, URINE AUTO RFX 1 /HPF (0-3); SPECIFIC GRAVITY UR AUTO RFX 1.024 (1.002-1.035); SQUAM EPITHELIAL CELL UR AURFX 0 /HPF (0-6); WBC, URINE AUTO RFX 1 /HPF (0-3)
[2017-10-22 05:27] LABS: INR 1.01; PROTHROMBIN TIME 13.4 SECONDS (12.4-14.5)
[2017-10-22 05:28] LABS: PARTIAL THROMBOPLASTIN TIME 44.6 SECONDS (26.8-37.9)
[2017-10-22 05:36] LABS: ALBUMIN 2.6 GM/DL (3.2-5.2); ALKALINE PHOSPHATASE 399 U/L (45-117); ALT/SGPT 94 U/L (12-78); ANION GAP 16 MEQ/L (8-16); AST/SGOT 162 U/L (7-37); BILIRUBIN,DIRECT 1.8 MG/DL (0.0-0.2); BILIRUBIN,TOTAL 2.6 MG/DL (0.2-1.0); BLOOD UREA NITROGEN 12 MG/DL (7-18); CALCIUM LEVEL 8.4 MG/DL (8.8-10.2); CARBON DIOXIDE LEVEL 21 MEQ/L (21-32); CHLORIDE LEVEL 98 MEQ/L (98-107); CPK CREATINE PHOSPHOKINASE 119 U/L (26-192); CREATININE FOR GFR 0.65 MG/DL (0.55-1.30); GLOMERULAR FILTRATION RATE > 60.0 (>45); GLUCOSE, FASTING 89 MG/DL (70-100); LIPASE 80 U/L (73-393); POTASSIUM SERUM 4.1 MEQ/L (3.5-5.1); SODIUM LEVEL 135 MEQ/L (136-145); TOTAL PROTEIN 6.9 GM/DL (6.4-8.2); TROPONIN I < 0.02 NG/ML (< 0.10)
[2017-10-22 05:37] LABS: MB/CK RELATIVE INDEX 0.84 (< OR =4)
[2017-10-22] MEDS ORDERED: ISOVUE-370 76% 100ML VIAL (Q9967) As Ordered (05:42)
[2017-10-22 06:02] LABS: LACTIC ACID SEPSIS PROTOCOL 3.3 MMOL/L (0.4-2.0)
[2017-10-22] MEDS: OXYCODONE/APAP 5MG/325MG(BULK FOR ED) 1 TABLET PO (07:35)
[2017-10-26 11:55] LABS: BEDSIDE GLUCOSE 92 MG/DL (80-115)
== END 2017-10-22 07:38 | disposition home or self-care (01) ==
LOC: M ED 00:37
DX: R16.0 Hepatomegaly, not elsewhere classified (principal); R11.10 Vomiting, unspecified; R19.7 Diarrhea, unspecified; R51 Headache; E11.9 Type 2 diabetes mellitus without complications; J44.9 Chronic obstructive pulmonary disease, unspecified; Z85.51 Personal history of malignant neoplasm of bladder; Z87.891 Personal history of nicotine dependence; Z88.2 Allergy status to sulfonamides; Z79.899 Other long term (current) drug therapy; Z79.51 Long term (current) use of inhaled steroids; Z79.84 Long term (current) use of oral hypoglycemic drugs; Z79.2 Long term (current) use of antibiotics
CPT/HCPCS: J2270

== ENCOUNTER → 2017-10-29 | Outpatient (REF) | payer OTHER | LOC: M LAB REF 13:19 | DX: C67.9 Malignant neoplasm of bladder, unspecified (principal) ==